=== PATIENT | female | born 1950 | race Caucasian/White ===

== ENCOUNTER 2022-10-23 18:32 | Emergency (ER) | payer MEDICARE ==
[2022-10-23] MEDS ORDERED: Acetaminophen 500 MG Tab PO ONE (19:23)
== END 2022-10-23 21:01 | disposition home or self-care (01) ==
LOC: JP.ED 18:32
DX: S42.252A Displaced fracture of greater tuberosity of left humerus, initial encounter for closed fracture (principal); E78.00 Pure hypercholesterolemia, unspecified; K21.9 Gastro-esophageal reflux disease without esophagitis; Z86.16 Personal history of COVID-19; Z87.891 Personal history of nicotine dependence; Z79.899 Other long term (current) drug therapy; W17.4XXA Fall from dock, initial encounter
CPT/HCPCS: 73030; 73060; 73080; 99284; A9270